=== PATIENT | female | born 1965 | race Caucasian/White ===

== ENCOUNTER 2019-08-27 20:28 | Emergency (ER) | payer BC, SELFPAY ==
[2019-08-27] MEDS ORDERED: cefTRIAXone\\ROCEPHIN 2 GM VIAL ONE (20:57)
[2019-08-27] MEDS ORDERED: Acetaminophen 500 MG TAB ONE ×2 (20:57→21:00)
[2019-08-27 21:03] LABS: #Eosinphils 0.1 thou/uL (0.0-0.7); #Lymphocytes 1.1 thou/uL (1.20-3.40); #Monocytes 1.2 thou/uL (0.11-0.59); #Neutrophils 7.9 thou/uL (1.40-6.50); %Basophils 0.3 % (0.0-1.0); %Eosinophils 0.6 % (0.0-10.0); %Lymphocytes 10.7 % (21.0-51.0); %Monocytes 11.3 % (0.0-10.0); %Neutrophils 77.2 % (42.0-75.0); Hemoglobin 12.9 g/dL (12.0-16.0); Mean Corpuscular HGB CONC 32.8 g/dL (32.0-36.0); Mean Corpuscular Hemoglobin 25.8 pg (27.0-31.0); Mean Corpuscular Volume 78.7 fL (78.0-98.0); Mean Platelet Volume 8.7 fL (7.4-10.4); Platelet Count 348 thou/uL (130-400); RBC Distribution Width 18.9 % (11.5-14.5); White Blood Cell (WBC) Count 10.3 thou/uL (4.8-10.8)
--- NOTE | 2019-08-27 21:11 | RAD ---
Chest AP view INDICATION: History of sepsis COMPARISON: None FINDINGS: Lungs: The lungs are clear Cardiac silhouette: The cardiomediastinal silhouette appears within normal limits. Pulmonary vasculature: Normal Pleural spaces: No pleural effusion or pneumothorax is demonstrated. Upper abdomen: No abnormality seen. Osseous structures: No acute osseous abnormality. Additional findings: None. IMPRESSION: No acute cardiopulmonary abnormality.
[2019-08-27 21:35] LABS: ALT (SGPT) 31 U/L (8-55); AST (SGOT) 43 U/L (5-34); Albumin 4.6 g/dL (3.5-5.0); Alkaline Phosphatase 133 U/L (40-110); Anion Gap 18 mmol/L (10-20); BUN (Urea Nitrogen) 11 mg/dL (9.8-20.1); Bilirubin, Total 0.3 mg/dL (0.2-1.2); CK (CPK) 135 U/L (29-168); Calc. Creatinine Clearance 0 mL/min (70-130); Calcium 9.8 mg/dL (7.8-10.44); Carbon Dioxide 23 mmol/L (22-29); Chloride 98 mmol/L (98-107); Estimated GFR-MDRD 63; Globulin 4.6 g/dL (2.4-3.5); Glucose 120 mg/dL (70-105); Potassium 4.5 mmol/L (3.5-5.1); Protein, Total 9.2 g/dL (6.0-8.3); Sodium 134 mmol/L (136-145)
[2019-08-27 21:43] LABS: Bacteria/HPF None Seen HPF (None Seen); Bilirubin Negative (Negative); Blood, Urine 2+ (Negative); Clarity Clear (Clear); Glucose, Urine (Dipstick) 30 mg/dL (Negative); Leukocyte 250 Leu/uL (Negative); Nitrite Negative (Negative); Protein, Urine (Dipstick) 50 mg/dL (Neg-Trace); RBC/HPF Greater than 50 HPF (0-3); Squamous Epithelial None Seen HPF (0-3); Urobilinogen Normal mg/dL (Less than 2)
[2019-08-27] MEDS ORDERED: Morphine 4 MG/ML VIAL ONE (21:56)
[2019-08-27] MEDS ORDERED: Ondansetron PF 4 MG/2 ML Vial ONE (21:56)
--- NOTE | 2019-08-28 00:01 | CT ---
CT OF THE ABDOMEN AND PELVIS WITHOUT IV CONTRAST INDICATION: 54-year-old female with right-sided back pain COMPARISON: None FINDINGS: The lack of IV contrast limits evaluation of the solid organs of the abdomen and pelvis. ABDOMEN: Lung bases: Bibasilar atelectasis Liver: There is a 1.1 cm hypodensity within segment 5 of the right hepatic lobe that is incompletely characterized on the current examination. No additional focal hepatic lesion is evident. Gallbladder: There is layered density within the gallbladder suspicious for sludge Pancreas: Normal. Adrenal glands: Normal. Spleen: Normal. Kidneys and ureters: The right kidney is malrotated. This is a normal variant. There is no hydronephr osis. No ureteral calculus is demonstrated. Vasculature: There are mild vascular calcifications seen involving the visualized vasculature. Lymph nodes:No lymphadenopathy. Free fluid in abdomen:No free fluid is evident. PELVIS: Small and large bowel: There is a mild amount retained stool within the colon. Small bowel is of norm al caliber. Appendix:Normal Bladder: There is a Mendez catheter within a decompressed bladder. There is mild perivesicular fat str anding. Rectal and perirectal soft tissues:Normal. Reproductive structures: Normal. Free fluid in pelvis: Mild free fluid in the pelvis Lymphadenopathy pelvis: There are mildly prominent inguinal lymph nodes bilaterally. The largest is s een on the right measuring 1.3 cm. No definite pathologically enlarged lymph nodes are evident within the pelvis. Osseous structures: No acute osseous abnormality. No destructive osteolytic or osteoblastic lesion i s identified. There is scattered degenerative and osteoarthritic changes. Soft tissues:Normal. IMPRESSION: 1. Findings suspicious for cystitis. There is a Mendez catheter within a decompressed bladder. Mildly enlarged lymph nodes within the inguinal regions may be reactive in nature. 2. No ureteral calculus or hydronephrosis. 3. Small hypodensity within the right hepatic lobe. Follow-up abdominal ultrasound may be helpful for improved characterization.
[2019-08-28] MEDS ORDERED: HYDROcodone/Acetaminophen 5/325 mg Tablet ONE (00:33)
== END 2019-08-28 00:44 | disposition home or self-care (01) ==
LOC: ERS 20:28
DX: N30.00 Acute cystitis without hematuria (principal); I10 Essential (primary) hypertension; F41.9 Anxiety disorder, unspecified; F90.9 Attention-deficit hyperactivity disorder, unspecified type
CPT/HCPCS: 36415; 71045; 74176; 80053; 81003; 81015; 82550; 83605; 85025; 87040; 87086; 93005; 96361; 96365; 96375; J0696; J2270; J2405

== ENCOUNTER 2019-08-28 14:24 | Emergency (ER) | payer SELFPAY ==
[2019-08-28 15:14] LABS: Hemoglobin 10.8 g/dL (12.0-16.0); Mean Corpuscular HGB CONC 33.4 g/dL (32.0-36.0); Mean Corpuscular Hemoglobin 26.4 pg (27.0-31.0); Platelet Count 279 thou/uL (130-400); RBC Distribution Width 18.2 % (11.5-14.5); Red Blood Cell (RBC) Count 4.11 mill/uL (4.20-5.40); White Blood Cell (WBC) Count 7.5 thou/uL (4.8-10.8)
[2019-08-28 15:31] LABS: ALT (SGPT) 32 U/L (8-55); AST (SGOT) 26 U/L (5-34); Albumin 3.9 g/dL (3.5-5.0); Alkaline Phosphatase 171 U/L (40-110); Anion Gap 10 mmol/L (10-20); BUN (Urea Nitrogen) 7 mg/dL (9.8-20.1); Bilirubin, Total 0.4 mg/dL (0.2-1.2); Calc. Creatinine Clearance 0 mL/min (70-130); Calcium 8.8 mg/dL (7.8-10.44); Carbon Dioxide 27 mmol/L (22-29); Chloride 97 mmol/L (98-107); Estimated GFR-MDRD 82; Globulin 3.2 g/dL (2.4-3.5); Glucose 110 mg/dL (70-105); Potassium 3.4 mmol/L (3.5-5.1); Protein, Total 7.1 g/dL (6.0-8.3); Sodium 131 mmol/L (136-145)
[2019-08-28 15:40] LABS: Anisocytosis SLIGHT = 6-15 cells (100X) (0-5/hpf); Band 30 % (5-11); Eosinophils 1 % (0-10); Lymphocytes 16 % (21-51); MDiff Complete? YES; Metamyelocyte 1 % (0-0); Monocytes 8 % (0-10); Neutrophil 42 % (42-75); Platelet Morphology Comment Appears Adequate; Polychromasia SLIGHT = 2-3 cells (100X) (0-2/hpf); Reactive Lymphocytes 2 % (0-10)
[2019-08-28 16:14] LABS: Bilirubin Negative (Negative); Blood, Urine Large (Negative); Glucose, Urine (Dipstick) Negative (Negative); Leukocyte Trace (Negative); Nitrite Negative (Negative); Protein, Urine (Dipstick) 30 mg/dL (Neg-Trace); Urobilinogen 0.2 mg/dL (Less than 2)
[2019-08-28 16:19] LABS: Clarity Clear (Clear)
[2019-08-28 16:20] LABS: Bacteria/HPF None Seen HPF (None Seen); Squamous Epithelial None Seen HPF (0-3)
[2019-08-28] MEDS ORDERED: Ondansetron PF 4 MG/2 ML Vial ONE (16:45)
[2019-08-28] MEDS ORDERED: Morphine 4 MG/ML VIAL ONE ×2 (16:45→18:16)
--- NOTE | 2019-08-28 18:39 | ULT ---
Exam: Transabdominal and endovaginal pelvic ultrasound HISTORY:Flank pain. Back pain. Pelvic pain, times a few days COMPARISON: None Correlation: Stone CT 08/27/2019 TECHNIQUE: Transabdominal and endovaginal imaging of the pelvis is performed. Ovaries are interrogate d with grayscale, color flow, Doppler imaging and spectral wave form analysis FINDINGS: Uterus: No myometrial masses. Uterus is retroverted. Uterus measurin.1 x 4.7 x 5.9 cm. Endometrium: Trace fluid within the endometrium. Endometrium diameter: 0.2 cm. . Free fluid: Free fluid in the left and right hemipelvis Right ovary: Normal echotexture Right ovary measurement: 1.5 x 2.6 x 1.4 cm Left ovary: Normal echotexture. Exophytic paraovarian cyst measures 1.4 x 1.7 x 2.0 cm Left ovary measurements: 5.0 x 1.9 x 1.9 cm Ovarian Doppler: There is vascular flow to the left and right ovary. IMPRESSION: 1. Left ovarian cyst. Follow-up ultrasound in 6 weeks to ensure resolution. 2. Free fluid in the pelvis. 3. Retroverted uterus.
[2019-08-28] MEDS ORDERED: Acetaminophen 500 MG TAB ONE (21:20)
[2019-08-31 00:09] LABS: Chlamydia by PCR Not Detected (NotDetected); GC by PCR Not Detected (NotDetected)
== END 2019-08-28 22:10 | disposition home or self-care (01) ==
LOC: ERS 14:24
DX: A60.04 Herpesviral vulvovaginitis (principal); B37.3 Candidiasis of vulva and vagina; I10 Essential (primary) hypertension; F41.9 Anxiety disorder, unspecified; F90.9 Attention-deficit hyperactivity disorder, unspecified type
CPT/HCPCS: 36415; 76856; 80053; 81003; 83605; 85025; 87086; 87480; 87491; 87510; 87591; 87660; 96361; 96374; 96375; 96376; J2270; J2405

== ENCOUNTER 2024-05-21 23:12 | Inpatient (IN) | payer SELFPAY ==
[2024-05-22 00:06] LABS: #Basophils 0.05 10x3/uL (0.0-0.2); %Basophils 0.3 % (0.0-1.0); %Eosinophils 0.7 % (0.0-10.0); %Lymphocytes 8.4 % (21.0-51.0); %Monocytes 10.7 % (0.0-10.0); %Neutrophils 79.2 % (42.0-75.0); Hematocrit 33.9 % (36.0-47.0); Mean Corpuscular HGB CONC 32.4 g/dL (32.0-36.0); Mean Corpuscular Hemoglobin 29.4 pg (27.0-31.0); Mean Corpuscular Volume 90.6 fL (78.0-98.0); Mean Platelet Volume 8.5 fL (7.4-10.4); Platelet Count 414 10x3/uL (130-400); RBC Distribution Width 14.6 % (11.5-14.5); Red Blood Cell (RBC) Count 3.74 mill/uL (4.20-5.40)
[2024-05-22 00:24] LABS: ALT (SGPT) 12 U/L (8-55); AST (SGOT) 13 U/L (5-34); Albumin 2.9 g/dL (3.5-5.0); Alkaline Phosphatase 144 U/L (40-110); Anion Gap 17 mmol/L (10-20); BUN (Urea Nitrogen) 11 mg/dL (9.8-20.1); Bilirubin, Total 0.7 mg/dL (0.2-1.2); Calc. Creatinine Clearance 0 mL/min (70-130); Calcium 8.7 mg/dL (7.8-10.44); Carbon Dioxide 21 mmol/L (22-29); Chloride 105 mmol/L (98-107); Estimated GFR 78; Globulin 4.3 g/dL (2.4-3.5); Glucose 93 mg/dL (70-105); Potassium 3.8 mmol/L (3.5-5.1); Protein, Total 7.2 g/dL (6.0-8.3); Sodium 139 mmol/L (136-145)
[2024-05-22 00:29] LABS: Troponin I 0.034 ng/mL (< 0.028)
[2024-05-22] MEDS ORDERED: Aspirin Chewable 81 MG TAB ONE (01:57)
[2024-05-22] MEDS ORDERED: Nitroglycerin 2% Ointment 1 INCH/1 GM Packet ONE (01:57)
[2024-05-22] MEDS ORDERED: Labetalol HCl 100 MG/20 ML VIAL ONE (03:19)
[2024-05-22] MEDS ORDERED: Furosemide 40 MG (4 mL) VIAL ONE (03:49)
[2024-05-22] MEDS ORDERED: Lorazepam 2 MG/ML VIAL ONE (03:59)
[2024-05-22 04:41] VITALS: BMI 28.3
[2024-05-22] MEDS ORDERED: Lisinopril 20 MG TAB ONE (04:44)
[2024-05-22] MEDS ORDERED: Azithromycin 500 MG VIAL ONE (04:44)
[2024-05-22] MEDS ORDERED: Metoprolol Tartrate 50 MG TAB ONE (04:44)
[2024-05-22] MEDS: Labetalol HCl 100 MG/20 ML VIAL SLOW IVP SCH (04:46)
[2024-05-22] MEDS: Metoprolol Tartrate 50 MG TAB PO SCH (04:50)
[2024-05-22] MEDS: Lisinopril 20 MG TAB PO SCH ×2 (04:50→20:52)
[2024-05-22] MEDS: Azithromycin 500 MG in Sodium Chloride 0.9% 250 ML 250 ML IVPB SCH (04:54)
[2024-05-22] MEDS ORDERED: cefTRIAXone (ROCEPHIN) 1 GM VIAL ONE (06:15)
[2024-05-22] MEDS: cefTRIAXone\\ROCEPHIN 1 GM in Sodium Chloride 0.9% 100 ML IVPB SCH (06:59)
[2024-05-22] MEDS ORDERED: Enoxaparin 40 MG (0.4 mL) SYRINGE ONE (09:58)
[2024-05-22] MEDS ORDERED: Carvedilol 6.25 MG TAB ONE (09:58)
[2024-05-22] MEDS: Carvedilol 6.25 MG TAB PO SCH (10:19)
[2024-05-22] MEDS: Enoxaparin 40 MG (0.4 mL) SYRINGE SC SCH (10:20)
[2024-05-22] MEDS ORDERED: Ondansetron PF 4 MG/2 ML Vial IVP PRN (11:11)
[2024-05-22] MEDS ORDERED: HYDROcodone/Acetaminophen 5/325 mg Tablet PO PRN (11:11)
[2024-05-22] MEDS ORDERED: Acetaminophen 325 MG TAB PO PRN (11:11)
[2024-05-22] MEDS: ALPRAZolam 0.25 MG TAB PO SCH ×2 (13:04→17:50)
[2024-05-22] MEDS ORDERED: Iopamidol-370 76% 500 ML MDV (1 ML CHARGE) ONE (14:39)
[2024-05-22] MEDS: Furosemide 40 MG (4 mL) VIAL SLOW IVP SCH (17:50)
[2024-05-22] MEDS: ALPRAZolam 0.25 MG TAB PO PRN (20:52)
[2024-05-23] MEDS: hydrALAZINE 20 MG/ML VIAL SLOW IVP PRN (01:10)
[2024-05-23 04:07] LABS: #Basophils 0.04 10x3/uL (0.0-0.2); %Basophils 0.3 % (0.0-1.0); %Eosinophils 1.4 % (0.0-10.0); %Lymphocytes 11.2 % (21.0-51.0); %Monocytes 12.8 % (0.0-10.0); %Neutrophils 73.4 % (42.0-75.0); Hematocrit 35.1 % (36.0-47.0); Hemoglobin 11.5 g/dL (12.0-16.0); Mean Corpuscular HGB CONC 32.8 g/dL (32.0-36.0); Mean Corpuscular Hemoglobin 28.6 pg (27.0-31.0); Mean Corpuscular Volume 87.3 fL (78.0-98.0); Mean Platelet Volume 8.8 fL (7.4-10.4); Platelet Count 439 10x3/uL (130-400); RBC Distribution Width 14.6 % (11.5-14.5); Red Blood Cell (RBC) Count 4.02 mill/uL (4.20-5.40)
[2024-05-23 04:27] LABS: CRP,High Sensitivity (Inhouse) 13.64 mg/dL (< or = 0.5)
[2024-05-23 04:28] LABS: ALT (SGPT) 12 U/L (8-55); AST (SGOT) 18 U/L (5-34); Albumin 2.8 g/dL (3.5-5.0); Alkaline Phosphatase 132 U/L (40-110); Anion Gap 14 mmol/L (10-20); BUN (Urea Nitrogen) 13 mg/dL (9.8-20.1); Bilirubin, Total 0.6 mg/dL (0.2-1.2); Calc. Creatinine Clearance 76 mL/min (70-130); Calcium 8.8 mg/dL (7.8-10.44); Carbon Dioxide 23 mmol/L (22-29); Chloride 104 mmol/L (98-107); Estimated GFR 72; Globulin 4.3 g/dL (2.4-3.5); Glucose 118 mg/dL (70-105); Potassium 3.4 mmol/L (3.5-5.1); Protein, Total 7.1 g/dL (6.0-8.3); Sodium 138 mmol/L (136-145)
[2024-05-23] MEDS: Empagliflozin 10 MG TAB PO SCH (09:28)
[2024-05-23] MEDS: Furosemide 40 MG TAB PO SCH (09:28)
[2024-05-23] MEDS: Spironolactone 25 MG TAB PO SCH (11:44)
[2024-05-23] MEDS: Potassium Chloride 20 MEQ TAB PO SCH (11:44)
[2024-05-24] MEDS ORDERED: Benzonatate 100 MG CAP PO PRN (03:39)
[2024-05-24] MEDS: GUAIFENESIN SF SOLN 200 MG/10 ML UDCUP PO PRN (03:50)
[2024-05-24 05:10] LABS: #Basophils 0.05 10x3/uL (0.0-0.2); %Basophils 0.4 % (0.0-1.0); %Eosinophils 2.2 % (0.0-10.0); %Lymphocytes 12.5 % (21.0-51.0); %Neutrophils 73.2 % (42.0-75.0); Hematocrit 39.9 % (36.0-47.0); Hemoglobin 12.9 g/dL (12.0-16.0); Mean Corpuscular HGB CONC 32.3 g/dL (32.0-36.0); Mean Corpuscular Hemoglobin 28.5 pg (27.0-31.0); Mean Corpuscular Volume 88.1 fL (78.0-98.0); Mean Platelet Volume 8.8 fL (7.4-10.4); Platelet Count 506 10x3/uL (130-400); RBC Distribution Width 14.9 % (11.5-14.5); Red Blood Cell (RBC) Count 4.53 mill/uL (4.20-5.40)
[2024-05-24 05:31] LABS: Anion Gap 15 mmol/L (10-20); BUN (Urea Nitrogen) 16 mg/dL (9.8-20.1); Calc. Creatinine Clearance 58 mL/min (70-130); Calcium 9.6 mg/dL (7.8-10.44); Carbon Dioxide 25 mmol/L (22-29); Chloride 103 mmol/L (98-107); Estimated GFR 50; Glucose 126 mg/dL (70-105); Potassium 3.5 mmol/L (3.5-5.1); Sodium 139 mmol/L (136-145)
[2024-05-24] MEDS: Spironolactone 25 MG TAB PO SCH (08:54)
[2024-05-25 05:18] LABS: #Basophils 0.05 10x3/uL (0.0-0.2); %Basophils 0.3 % (0.0-1.0); %Eosinophils 3.3 % (0.0-10.0); %Neutrophils 73.6 % (42.0-75.0); Hematocrit 36.5 % (36.0-47.0); Hemoglobin 12.1 g/dL (12.0-16.0); Mean Corpuscular HGB CONC 33.2 g/dL (32.0-36.0); Mean Corpuscular Hemoglobin 28.6 pg (27.0-31.0); Mean Corpuscular Volume 86.3 fL (78.0-98.0); Mean Platelet Volume 8.8 fL (7.4-10.4); Platelet Count 516 10x3/uL (130-400); RBC Distribution Width 14.9 % (11.5-14.5); Red Blood Cell (RBC) Count 4.23 mill/uL (4.20-5.40)
[2024-05-25 05:33] LABS: Anion Gap 17 mmol/L (10-20); BUN (Urea Nitrogen) 20 mg/dL (9.8-20.1); Calc. Creatinine Clearance 52 mL/min (70-130); Calcium 8.9 mg/dL (7.8-10.44); Carbon Dioxide 23 mmol/L (22-29); Chloride 100 mmol/L (98-107); Estimated GFR 48; Glucose 142 mg/dL (70-105); Potassium 3.4 mmol/L (3.5-5.1); Sodium 137 mmol/L (136-145)
[2024-05-25] MEDS: Furosemide 40 MG TAB PO SCH (08:17)
[2024-05-25] MEDS: Potassium Chloride 20 MEQ TAB PO SCH (11:56)
[2024-05-25 15:20] VITALS: BP 134/63; TEMP 98.7
[2024-05-27 12:31] LABS: ANA Symphony (Qualitative) Negative (Negative); ANA Symphony (Quantitative) 0.3 Ratio (< 0.7 Negative); dsDNA IgG Antibody 1.3 IU/mL (<10 Negative)
== END 2024-05-25 16:55 | disposition home or self-care (01) | DRG 291 ==
LOC: ERS 23:12 → ERHOLD 05-22 02:46 → 2NO 05-22 12:25
PROVIDERS: ADMIT Internal Medicine; ATTEND Internal Medicine
DX: I11.0 Hypertensive heart disease with heart failure (principal); I50.21 Acute systolic (congestive) heart failure; I16.1 Hypertensive emergency; I42.9 Cardiomyopathy, unspecified; F41.9 Anxiety disorder, unspecified; E87.6 Hypokalemia; J20.9 Acute bronchitis, unspecified; E66.9 Obesity, unspecified; Z88.0 Allergy status to penicillin; Z90.710 Acquired absence of both cervix and uterus; Z68.27 Body mass index [BMI] 27.0-27.9, adult
CPT/HCPCS: 36415; 71045; 71275; 80048; 80053; 83605; 83735; 83880; 84484; 85025; 85379; 86038; 86141; 86225; 87040; 93005; 93306; 96374; 96375; J0360; J0456; J0696; J1650; J1940; J2060; J7050; Q9967